=== PATIENT | male | born 1945 ===

== ENCOUNTER 2018-04-19 07:00 | Day surgery (SDC) | payer OTHER ==
[~2018-04-19] VITALS: Ht 185.4 cm; Wt 97.1 kg
[~2018-04-19 07:00] MED LIST: ATENOLOL25 MG PO; AVAPRO300 MG PO
== END 2018-04-20 09:00 | disposition home or self-care (01) ==
LOC: CIR.AMB 07:00 → O/R 07:00 → SURH 07:00 → EDSTATUS 12:00 → SURH 13:15 → O/R 13:15 → CIR.AMB 04-20 09:00 → SURH 04-20 11:26
DX: D12.8 Benign neoplasm of rectum (principal); I10 Essential (primary) hypertension

== ENCOUNTER 2018-12-13 05:54 | Day surgery (SDC) | payer OTHER | END 2018-12-13 09:15 | disposition home or self-care (01) | LOC: AMB-ENDOS 05:54 → ADM 12:15 → AMB-ENDOS 12:15 | DX: D12.3 Benign neoplasm of transverse colon (principal) ==